=== PATIENT | male | born 1950 | race Caucasian/White ===

== ENCOUNTER 2021-05-25 15:42 | Emergency (ER) | payer MEDICARE, OTHER ==
[~2021-05-25] VITALS: Ht 182.9 cm; Wt 88.5 kg
== END 2021-05-25 18:05 | disposition home or self-care (01) ==
LOC: ER 15:42
DX: S01.112A Laceration without foreign body of left eyelid and periocular area, initial encounter (principal); S00.93XA Contusion of unspecified part of head, initial encounter; Z88.2 Allergy status to sulfonamides; Z79.01 Long term (current) use of anticoagulants; Z23 Encounter for immunization; W19.XXXA Unspecified fall, initial encounter; Y93.01 Activity, walking, marching and hiking
CPT/HCPCS: 12011; 70450; 90471; 90714; 99283-25